=== PATIENT | male | born 1995 | race Two or more races ===

== ENCOUNTER → 2024-06-01 | Outpatient (CLI) | payer MEDICAID, SELFPAY ==
--- NOTE | 2024-06-01 16:00 | XR_ITS ---
Examination: MRI left foot Indications: injury to the foot several months ago, radiating, pain and palpable lump in the plantar surface of the midfoot unable to bear weight on the foot, without contrast Date and time of exam: June 01, 2024 at 0635 hrs. Technique: Multiple axial sagittal and coronal images of the left foot have been obtained with the Siemens high-resolution 1.5 Kathy MRI scanner. Images obtained include T2-weighted fat-suppressed sagittal sections, TR 3500, TE 46, T2 weighted coronal fat suppressed images, TR 3050, TE 84, T2-weighted transverse fat suppressed images, TR 3260, TE 63, proton density transverse images, TR 4720 TE 46, and T1 weighted coronal images, TR 560, TE 13. Findings: No occult fracture bone contusion or avascular necrosis No soft tissue hematoma Mild edema in the soft tissue plantar to the metatarsophalangeal joints Plantar fascia is with significantly thickened at the calcaneal insertion Thickening of the flexor hallucis longus tendon palmar to the proximal phalanx first digit Palmar capsule of the first metatarsophalangeal joint is also thickened with surrounding edema Impression: No occult fracture bone contusion or avascular necrosis Significant plantar fasciitis Thickening of the flexor hallucis longus tendon palmar to the proximal phalanx first digit Thickening of the palmar capsule of the first metatarsophalangeal joint, overuse, tendinitis appearance
--- NOTE | 2024-06-01 16:45 | XR_ITS ---
Examination: MRI left ankle, without contrast Date and time of exam: June 01, 2024 0633 hrs. Indications: Left ankle injury, unable to bear weight on the heel this month Technique: Multiple axial sagittal and coronal images of the left ankle have been obtained with the Siemens high-resolution 1.5 Kathy MRI scanner. Images obtained include T2-weighted fat-suppressed sagittal sections, TR 3500, TE 46, T2 weighted coronal fat suppressed images, TR 3050, TE 84, T2-weighted transverse fat suppressed images, TR 3260, TE 63, proton density transverse images, TR 4720 TE 46, and T1 weighted coronal images, TR 560, TE 13. Findings: Prominent thickening of the plantar fascia at the calcaneal insertion Mildly biconvex thickening of the Achilles tendon Achilles tendinosis with edema posterior to the insertion of the Achilles tendon into the calcaneus No occult fracture Negative for sinus Tarsi syndrome Mild tendinitis posterior tibial flexor digitorum peroneus longus and brevis tendons as well as flexor hallucis longus tendon Anterior posterior inferior tibiofibular ligaments intact Moderate sprain posterior talofibular ligament Thickening of the anterior talofibular ligament which is intact Calcaneal fibular ligament intact Dome the talus intact, no osteochondritis dissections Impression: Significant plantar fasciitis Mild Achilles tendinosis Mild tendinitis flexor tendons most severe flexor hallucis longus Moderate sprain posterior talofibular ligament Colonic thickening of the anterior talofibular ligament
== END | disposition home or self-care (01) ==
PROVIDERS: PCP Student in an Organized Health Care Education/Training Program; Referring Provider Student in an Organized Health Care Education/Training Program; Visit Provider Student in an Organized Health Care Education/Training Program
DX: M72.2 Plantar fascial fibromatosis (principal); M67.874 Other specified disorders of tendon, left ankle and foot; M25.872 Other specified joint disorders, left ankle and foot; S93.492A Sprain of other ligament of left ankle, initial encounter; X58.XXXA Exposure to other specified factors, initial encounter; M24.272 Disorder of ligament, left ankle
CPT/HCPCS: 73718; 73721

== ENCOUNTER 2024-07-17 15:00 | Outpatient (RCR) | payer MEDICAID, SELFPAY ==
--- NOTE | 2024-07-03 14:12 | PT.OIERPT ---
PT OP Initial Eval Patient Information Outpatient Physical Therapy Treatment Date: 07/03/24 Visit Reasons: Plantar fascial fibromatosis Medical Diagnosis: M66.172 M72.2 S96.01 Treatment Dx #1: L foot pain Start of Care: 07/03/24 Date of Onset: 02/23/24 Smoking Status Smoking Status: Never smoker Initial Assessment Subjective: Pt is 29 yr old male who reports L foot pain on plantar aspect since January when he was running around the bases playing softball he felt a sudden pain which made it difficult to WB. Today he is ambulating with pain and points to the bottom of foot. He says he can walk for about 15-30 mins and then the pain limits him. He says he can't move his toes since the injury. 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 PMH: L ACL repair 2014 Imaging: MRI in EMR Significant plantar fasciitis,Mild Achilles tendinosis,Mild tendinitis flexor tendons most severe flexor hallucis longus,Moderate sprain posterior talofibular ligament,Colonic thickening of the anterior talofibular ligament Pt goal: to be able to move his toes and walk and play sports Objective: L ankle AROM: DF: 5 deg PF: 45 deg toe AROM: Great toe: Flexion: WNL toes 2-5: unable Heel raise: unable on L TTP: moderate of plantar fascia Assessment: Pt presents with decreased digit flexion ROM and TTP of plantar fascia. Pt is unable to heel raise on L and has pain with weightbearing. Pt requires skilled therapy to meet goals and has fair rehab potential. Short Term and Intermediate Goals 1. Ind with HEP 2. Improved ankle DF to 10 deg and PF to 55 deg 3. Decreased TTP from mod to min of plantar fascia 4. Pt will ambulate community distances with symmetrical gait pattern Treatment Plan 1. Manual therapy ? 2. Therex ? 3. Modalities as indicated, moist heat, ice, TENS Frequency and Duration: 1-2x a week for 36 visits Certification Dates: 07/03/24 to 09/28/24 Procedure Charges OP PT Eval Mod Complex 30 minutes: Yes
--- NOTE | 2024-07-10 18:02 | PT.ODAYNRPT ---
PT Outpatient Daily Note OP Daily Note Outpatient Physical Therapy Treatment Date: 07/10/24 Visit Reasons: Plantar fascial fibromatosis Subjective: Same as time of eval Objective: See F/S for therex Assessment: Pt has difficulty flexing toes and plantar foot pain consistent with tendinopathy or tear Plan: Cont per POC Length of Time (minutes) of Treatment: 30 Minutes Procedure Charges Therapeutic Exercise 30 minutes: Yes
--- NOTE | 2024-07-17 15:38 | PT.ODAYNRPT ---
PT Outpatient Daily Note OP Daily Note Outpatient Physical Therapy Treatment Date: 07/17/24 Visit Reasons: Plantar fascial fibromatosis Subjective: Pt reports foot was sore after last session but just lasted that evening. Objective: Please see flow sheet for ther ex list. Assessment: Interventions completed with minimal discomfort. Plan: Continue with pOC. Length of Time (minutes) of Treatment: 30 Minutes Procedure Charges Therapeutic Exercise 30 minutes: Yes
== END 2024-07-26 23:59 | disposition home or self-care (01) ==
LOC: CPTX 15:00
PROVIDERS: PCP Student in an Organized Health Care Education/Training Program; Referring Provider Student in an Organized Health Care Education/Training Program; Visit Provider Student in an Organized Health Care Education/Training Program
DX: M79.672 Pain in left foot (principal); M66.172 Rupture of synovium, left ankle; M72.2 Plantar fascial fibromatosis
CPT/HCPCS: 97110; 97162

== ENCOUNTER 2024-07-29 14:20 | Outpatient (RCR) | payer MEDICAID, SELFPAY ==
--- NOTE | 2024-07-29 15:21 | PT.ODAYNRPT ---
PT Outpatient Daily Note OP Daily Note Outpatient Physical Therapy Treatment Date: 07/29/24 Visit Reasons: Plantar fascial fibromatosis Subjective: No changes to report at this time. Objective: Please see flow sheet for ther ex list. Assessment: Performed DF mobilization, first few reps pt guarded but after a few reps and verbal cues to relax pt less guarded allowing for increase ROM. Plan: Continue with POC. Length of Time (minutes) of Treatment: 30 Minutes Procedure Charges Therapeutic Exercise 30 minutes: Yes
--- NOTE | 2024-09-05 16:10 | PT.ODS1RPT ---
PT OP Progress/Discharge Note Date of Service: 09/05/24 Progress Note/DC Note Progress Note/Discharge Note: DC Note Patient Information Visit Reasons: Plantar fascial fibromatosis Service Continue Service or Discharge: Discharge Discharge Date: 09/05/24 Status Assessment: Pt attended the initial evaluation and 3 Rx visits and then no showed on 08/06/24 and never returned or called to schedule a follow-up appointment within the past 30 days, which is not in compliance with attendance policy. Pt?s attendance is not consistent enough to make progress with goals. Thank you for your referrals. Plan: D/C
== END 2024-08-26 23:59 | disposition home or self-care (01) ==
LOC: CPTX 14:20
PROVIDERS: PCP Student in an Organized Health Care Education/Training Program; Referring Provider Student in an Organized Health Care Education/Training Program; Visit Provider Student in an Organized Health Care Education/Training Program
DX: M79.672 Pain in left foot (principal); M72.2 Plantar fascial fibromatosis; M66.172 Rupture of synovium, left ankle
CPT/HCPCS: 97110

== ENCOUNTER → 2024-09-03 | Outpatient (CLI) | payer MEDICAID, SELFPAY ==
--- NOTE | 2024-09-03 08:45 | XR_ITS ---
Examination: MRI left ankle, without contrast MRI left ankle with intravenous contrast Date and time of exam: September 03, 2024 0919 hrs. Indications: Left ankle pain numbness stiffness in the ankle and foot months Technique: Multiple axial sagittal and coronal images of the left ankle have been obtained with the Siemens high-resolution 1.5 Kathy MRI scanner. Images obtained include T2-weighted fat-suppressed sagittal sections, TR 3500, TE 46, T2 weighted coronal fat suppressed images, TR 3050, TE 84, T2-weighted transverse fat suppressed images, TR 3260, TE 63, proton density transverse images, TR 4720 TE 46, and T1 weighted coronal images, TR 560, TE 13. Axial sagittal coronal images post intravenous administration 20 cc gadolinium Findings: Adequate marrow signal, no occult fracture or bone contusion Marked thickening of the plantar fascia at its calcaneal insertion Negative for sinus Tarsi syndrome Negative for Achilles tendinosis Mild tendinitis flexor tendons Anterior posterior inferior tibiofibular ligaments and talofibular ligaments are intact although moderate strain of the posterior talar fibular ligament Postcontrast images demonstrate no abnormal soft tissue or osseous enhancement Impression: No occult fracture Marked plantar fascia is Moderate strain of the posterior talofibular ligament Mild tendinitis flexor tendons
--- NOTE | 2024-09-03 09:30 | XR_ITS ---
Examination: MRI foot, without intravenous contrast. MRI foot , with intravenous contrast. Exam date and time: September 03, 2024 0919 hrs. Indications: Plantar surface pain difficulty moving toes numbness and paresthesias in the left with stiffness in the ankle months Technique: Multiple axial, sagittal and coronal images of the left foot have been obtained with the Siemens high-resolution 1.5 Kathy MRI scanner. Images obtained included T2 weighted fat suppressed sagittal sections, TR 3500, TE 46, T2 weighted coronal fat suppressed images, TR 3050, TE 84, T2-weighted transverse fat suppressed images, TR 30-60, TE 63, proton density transverse images, TR 4720, TE 46, and T1 weighted coronal images, TR 560, TE 13. Axial, sagittal and coronal images are obtained post intravenous injection 20 cc gadolinium. Findings: No occult fracture bone contusion or marrow edema No avascular necrosis Negative for sinus Tarsi syndrome Marked thickening of the plantar fascia at its calcaneal insertion No soft tissue abscess No cortical bone destruction No opaque foreign body No abnormal soft tissue or osseous enhancement on the postcontrast images Mild thickening of the flexor hallucis longus tendon Impression: Marked plantar fasciitis Tendinitis flexor hallucis longus tendon
== END | disposition home or self-care (01) ==
LOC: SMRI 08:39
PROVIDERS: PCP Student in an Organized Health Care Education/Training Program; Referring Provider Student in an Organized Health Care Education/Training Program; Visit Provider Student in an Organized Health Care Education/Training Program
DX: S96.812A Strain of other specified muscles and tendons at ankle and foot level, left foot, initial encounter (principal); X58.XXXA Exposure to other specified factors, initial encounter; M67.874 Other specified disorders of tendon, left ankle and foot; M72.2 Plantar fascial fibromatosis; M77.8 Other enthesopathies, not elsewhere classified
CPT/HCPCS: 73720; 73723; A9579